=== PATIENT | female | born 1975 | race Caucasian/White ===

== ENCOUNTER 2021-08-21 16:16 | Emergency (ER) | payer MEDICARE, MEDICAID ==
[~2021-08-21] VITALS: Ht 162 cm; Wt 77.0 kg
[~2021-08-21 16:16] MED LIST: B COMPLEX PO; CALC-250 PO; CETI10TA17 PO; CHOL200018 PO; CITA20TA4 PO; CYCL10TA9 PO; DCS100C PO; DIATOMACEOUS EARTH PO; DIPH25TA82 PO; FLU; FLUR100T2 PO; LORA0.5T PO; MAGNESIUM OIL TOP; METO25TA2 PO; OMEG1CAP51 PO; ONDA8TAB2 PO; OXYC1TAB87 PO; SENN1TAB76 PO; SMT80CT PO; TUMERIC 1000 MG PO; ZOLP10TA5 PO; [UNRECOGNIZED DRUG - OTHER]
--- OUTSIDE RECORDS SUMMARY | 2021-08-21 16:21 | XMS REPORT | Encounter Summary ---
Author Author [facility] Organization [facility] Address Unknown Phone Unavailable Care Team Providers Care Account Executive Key Accounts Name Role Phone Jessica Nolasco DO Unavailable Jacki Oleary MD PCP Reason for Visit * Reason Comments Medication Refill Encounter Details Care Team Description [place] [address] [facility] [address] [place] [address] 08/17/2021 Refill Neurology: [facility] [place] [address] Social History Date Tobacco Use Types Packs/Day Years Used Never Smoker Smokeless Tobacco: Never Used Comments Alcohol Use Standard Drinks/Week No 0 (1 standard drink = 0.6 o z pure alcohol) Sex Assigned at Date Recorded Female 03/06/2020 11:51 AM CDT Date Recorded COVID-19 Exposure Response 07/31/2021 4:12 PM WARP TYING MACHINE TENDER In the last month, have you been in contact with No / Unsure someone who was confirmed or suspected to have Coronavirus / COVID-19? documented as of this encounter Functional Status Date of Assessment Functional Status Response 06/02/2018 Does the patient have a hearing impairment: No 06/02/2018 Does the patient have a visual impairment: Yes 06/02/2018 Does the patient have impaired ambulation: Yes 06/10/2017 Does the patient have an activity of daily living No (ADL) impairment: 06/10/2017 Does the patient have an instrumental activity of No daily living (IADL) impairment: Date of Assessment Cognitive Status Response 06/02/2018 Does the patient have a cognitive impairment: No documented as of this encounter Ordered Prescriptions Start Date End Date Prescription Sig Dispensed Refills 08/17/2021 rizatriptan (MAXALT) 10 TAKE 1 TABLET 9 tablet 2 mg tablet BY MOUTH ONCE DAILY NEEDED . MAY REPEAT IN 2 HOURS NEEDED. documented in this encounter Plan of Treatment Not on filedocumented as of this encounter Visit Diagnoses Not on filedocumented in this encounter Discontinued Medications Start Date End Date Medication Sig Discontinue Reason 06/06/2021 08/17/2021 rizatriptan (MAXALT) 10 TAKE 1 mg tablet TABLET BY MOUTH ONCE DAILY NEEDED . MAY REPEAT IN 2 HOURS NEEDED. documented as of this encounter Additional Health Concerns Noted Time Assessment 09/18/2020 10:49 AM WARP TYING MACHINE TENDER PHQ-9 Depression Total Score: 16 07/31/2021 4:30 PM WARP TYING MACHINE TENDER A fall risk assessment has been complet ed for the patient 07/21/2019 2:49 PM WARP TYING MACHINE TENDER A Body Mass Index follow-up plan has be en documented for the patient 07/31/2021 4:29 PM WARP TYING MACHINE TENDER PHQ-2 Depression Total Score: 0 documented as of this encounter Care Teams Start Date End Date Account Executive Key Accounts Relationship Specialty 03/06/20 Jacki Oleary MD PCP - General Family [address] [place] [id number] 03/06/20 Jessica Nolasco DO Obstetrics [address] [place] [address] documented as of this encounter
--- OUTSIDE RECORDS SUMMARY | 2021-08-21 16:21 | XMS REPORT | Encounter Summary ---
Author Author [facility] Organization [facility] Address Unknown Phone Unavailable Care Team Providers Care Reaming Machine Operator Name Role Phone Jessica Nolasco DO Unavailable Jacki Oleary MD PCP Reason for Referral * Pain Authorization (Routine) - New Request Diagnoses / Procedures Referred By Contact Referred To Conta [facility] Specialty Diagnoses Chronic migraine w/o aura w/o status migrainosus, not intractable Procedures CHEMOD[place]ERVATION [place] [address] [facility] [place] [address] [place] [address] Referral ID Status Reason Start Date Expiration Visits Vi sits Date Requested Authorized [id number] New Request 07/31/2021 07/31/2022 1 1 N HOOKER Reason for Visit * Reason Comments Procedure BTX; * Pain Authorization (Routine) - Authorized Diagnoses / Procedures Referred By Contact Referred To Conta ct Specialty Diagnoses Chronic migraine Procedures CHEMODENERVATION MUSCLE MIGRAINE [place] BOTULINUM [place] [address] [facility] [address] [place] [address] [place] [address] [facility] [address] [place] [address] Neurology Referral ID Status Reason Start Date Expiration Visits Vi sits Date Requested Authorized [id number] Authorized 03/21/2021 03/21/2022 1 1 Encounter Details Care Team Description [place] [address] [facility] [address] [place] [address] Chronic migraine w/o aura w/o status glendy rainosus, not intractable 07/31/2021 Procedure visit Neurology: [facility] [place], [address] [place] [address] Social History Date Tobacco Use Types Packs/Day Years Used Never Smoker Smokeless Tobacco: Never Used Comments Alcohol Use Standard Drinks/Week No 0 (1 standard drink = 0.6 o z pure alcohol) Sex Assigned at Date Recorded Female 03/06/2020 11:51 AM CDT Date Recorded COVID-19 Exposure Response 07/31/2021 4:12 PM CHAIN HOOKER In the last month, have you been in contact with No / Unsure someone who was confirmed or suspected to have Coronavirus / COVID-19? documented as of this encounter Last Filed Vital Signs Reading Time Taken Comments Vital Sign 116/74 07/31/2021 4:30 PM CHAIN HOOKER Blood Pressure 84 07/31/2021 4:30 PM CHAIN HOOKER Pulse - - Temperature - - Respiratory Rate 100% 07/31/2021 4:30 PM CHAIN HOOKER Oxygen Saturation - - Inhaled Oxygen Concentration 80.4 kg (177 lb 3.2 oz) 07/31/2021 4:30 PM CHAIN HOOKER Weight 163.8 cm (5' 4.49") 07/31/2021 4:30 PM CHAIN HOOKER Height 29.96 07/31/2021 4:30 PM CHAIN HOOKER Body Mass Index documented in this encounter Functional Status Date of Assessment [...] impairment: No documented as of this encounter Procedure Notes * Yeni Prince MD - 07/31/2021 4:45 PM CHAIN HOOKER Associated Order(s): CHEMODENERVATION MUSCLE MIGRAINE Procedure(s): [place] CHEMODERVATE FACIAL/TRIGEM/CERV MUSC MIGRAINE Pre-Procedure Diagnose(s): Chronic migraine Post-Procedure Diagnose(s): Chronic migraine w/o aura w/o status migrainosus, no t intractable Subjective: Jenny Rodríguez 46 y.o. female is here today for botox for c hronic migraines. Duration of migraines >20 years. The symptoms occur for greater than 4 hours 30 days per month with migraines at least 15 days per month. Currently: every day migraine in May, 3x per week -- this month a bit lotus r, but still more than her normal in the past. Any chance you are or trying to become ? no Vitals: 07/31/21 1630 BP: 116/74 BP Source: Arm, Left Upper Patient Position: Sitting Pulse: 84 SpO2: 100% Weight: 80.4 kg (177 lb 3.2 oz) Height: 163.8 cm (64.49") PainSc: Six Botox Injection Procedure Previous Injection Date:03/21/2021 Informed consent given verbally to the patient today to include, but not limited to: Most common side effects: neck pain, headache, eyelid ptosis, migraine, muscular weakness, musculoskeletal stiffness, bronchitis, injection-site pain, musculosk eletal pain, myalgia, facial paresis, hypertension, and muscle spasms; infection at injections sites, bruising, bleeding Most serious side effects/risks: anaphylaxis, dysphagia, pneumonia, arrhythmia, myocardial infarction, and in some cases, spontaneous Confirmed: patient, procedure, side, site, safety procedures followed. Performed by: Yeni Prince MD. Preparation: no contraindications noted to Botox, possible medications prior to procedure Emla cream 2.5%/2.5% - 2g topically prior to procedure, Tylenol, Prepa ration of site with alcohol Procedure performed: Indication: Chronic Migraine Headaches Medication: Onabotulinum toxin A 2.5 ml/100 units (Botulinum Toxin 5 units per 0.1mL, 200 units prepared) Location: PREEMPT protocol (Loni العلي, and coauthors. Cephalalgia, 2010;30:793) Muscles/Sites Injected C - Bilateral Frontalis - 20 units divided in 4 sites D - Bilateral Temporalis - 40 units divided in 8 sites E - Bilateral Occipitalis - 30 units divided in 6 sites F - Bilateral Cervical Paraspinals - 20 units divided in 4 sites G - Bilateral Trapezius - 40 units divided in 6 sites Follow the pain - orbic oculi 10 units divided in 4 sites Total Dose - 160 Units divided in 32 sites Lot/Expiration: [id number], 10/2023 - both vials Procedure tolerated: well. Complications: none. Diagnosis Chronic Migraine Headaches Course: Progressing as expected. Counseled: Patient/Family, Regarding diagnosis, Regarding treatment, Regarding medications. If any serious side effects occur, the patient has been instructed to go to the nearest emergency room and call our office. Follow up: as scheduled - call with any concerns N HOOKER documented in this encounter Miscellaneous Notes * Patient Instructions - Yeni Prince MD - 07/31/2021 4:45 PM CHAIN HOOKER 1) Do not massage or apply pressure on the treated area for 4hrs after treatment since Botox may migrate to areas of undesirable effectiveness. 2) Do not lie down for 4 hours after treatment. This is to avoid the risk of pre ssure on the treated areas. 3) Avoid rigorous exercise/activities, extensive heat (eg. sauna, hot tub, tanni ng) and sun exposure, and alcoholic beverages for the first 24 hours after treat ment. This may cause temporary redness, swelling, and/or itching at the injectio n sites. Feel free to shower and go about most other daily activities. 4) You may experience a mild headache after Botox. Should this occur, we recomme nd you avoid aspirin or aspirin containing products. You may opt instead to use acetaminophen, and/or cool compresses. Cold compresses may be used 10 minutes on 10 minutes off to reduce swelling 2-3 times per day during the first 1-2 days if needed. 5) Note that any bumps or lemon will go away in a few hours. If you do develop a bruise it will resolve like any other bruises you may have had in about a week. There is occasionally some mild pain, swelling, itching, or redness at the site of injection similar to most other injections. Redness may last for 1-2 days, r mica longer. You may apply cool compresses or take acetaminophen to reduce swel ling or discomfort. It is patient's responsibility to notify the clinic of any insurance changes at least 2 weeks prior to any Botox injection appointment to allow for prior author ization update. Botox Savings Program: [employer] will reimburse patients up to $1000 per treatme nt [email or web address] or Option 4 to register and submit cl aims. You will need your EOB with patient responsibility listed. If your EOB does not include CPT and J-code you will want to write those on the EOB to prevent delayed processing: CPT code: 55052 J-code: [id number] 6) Do not massage or apply pressure on the treated area for 4hrs after treatment since Botox may migrate to areas of undesirable effectiveness. 7) Do not lie down for 4 hours after treatment. This is to avoid the risk of pre ssure on the treated areas. 8) Avoid rigorous exercise/activities, extensive heat (eg. sauna, hot tub, tanni ng) and sun exposure, and alcoholic beverages for the first 24 hours after treat ment. This may cause temporary redness, swelling, and/or itching at the injectio n sites. Feel free to shower and go about most other daily activities. 9) You may experience a mild headache after Botox. Should this occur, we recomme nd you avoid aspirin or aspirin containing products. You may opt instead to use acetaminophen, and/or cool compresses. Cold compresses may be used 10 minutes on 10 minutes off to reduce swelling 2-3 times per day during the first 1-2 days if needed. 10) Note that any bumps or lemon will go away in a few hours. If you do develop a bruise it will resolve like any other bruises you may have had in about a week . There is occasionally some mild pain, swelling, itching, or redness at the sit e of injection similar to most other injections. Redness may last for 1-2 days, rarely longer. You may apply cool compresses or take acetaminophen to reduce swe lling or discomfort. It is patient's responsibility to notify the clinic of any insurance changes at least 2 weeks prior to any Botox injection appointment to allow for prior author ization update. Botox Savings Program: [employer] will reimburse patients up to $1000 per treatme nt [email or web address] or Option 4 to register and submit cl aims. You will need your EOB with patient responsibility listed. If your EOB does not include CPT and J-code you will want to write those on the EOB to prevent delayed processing: CPT code: 32037 J-code: [id number] N HOOKER documented in this encounter Plan of Treatment Order Schedule Name Type Priority Associated Diag noses Ordered: 07/31/2021 CHEMODENERVATION MUSCLE Procedures Routine Chroni c migraine w/o aura MIGRAINE w/o status migrainosus, not intractable documented as of this encounter Procedures Comments Procedure Name Priority Date/Time Associated Diag nosis [place] CHEMODERVATE Routine 07/31/2021 Chronic migrai ne FACIAL/TRIGEM/CERV MUSC 4:45 PM CHAIN HOOKER MIGRAINE documented in this encounter Visit Diagnoses Diagnosis Chronic migraine w/o aura w/o status mi grainosus, not intractable Chronic migraine without aura, without mention of intractable migraine without mention of status migrainosus * Addendum Note - Kristin Andres LPN - 07/31/2021 4:45 PM CHAIN HOOKER Addended by: KRISTIN ANDRES on: 07/31/2021 05:10 PM Modules accepted: Orders N HOOKER documented in this encounter Administered Medications Action Date Dose Rate Site Medication Order MAR Action 07/31/2021 4:55 PM CHAIN HOOKER 160 Units ONAbotulinum toxin A (BOTOX) injection Given 160 Units 160 Units, SEE ADMIN INSTRUCTIONS, ONCE , 1 dose, On Fri07/31/21 at 1745 documented in this encounter Orders First Ordered Date Medications Ordered That Might Not Have Count Last Ordered Date Been Administered ONAbotulinum toxin A (BOTOX) injection 1 07/31/2021 160 Units documented in this encounter Additional Health Concerns Noted Time Assessment 09/18/2020 10:49 AM CHAIN HOOKER PHQ-9 Depression Total Score: 16 07/31/2021 4:30 PM CHAIN HOOKER A fall risk assessment has been complet ed for the patient 07/21/2019 2:49 PM CHAIN HOOKER A Body Mass Index follow-up plan has be en documented for the patient 07/31/2021 4:29 PM CHAIN HOOKER PHQ-2 Depression Total Score: 0 documented as of this encounter Care Teams Start Date End Date Reaming Machine Operator Relationship Specialty 03/06/20 Jacki Oleary MD PCP - [address] [address] 03/06/20 Jessica Nolasco DO Obstetrics 1 [place] [address] documented as of this encounter
--- OUTSIDE RECORDS SUMMARY | 2021-08-21 16:21 | XMS REPORT | Clinical Summary ---
Author Author [facility] Organization [facility] Address Unknown Phone Unavailable Care Team Providers Care Crew Mess Attendant Name Role Phone Jessica Nolasco DO Unavailable Jacki Oleary MD PCP Source Comments Some departments are not documenting in the electronic medical record. If you d o not see the information that you expected, contact Release of Information in [facility] [employer] department at [phone] for further assistan ce in locating additional records.[facility] Allergies No known active allergies Medications End Date Status Medication Sig Dispensed Refills Start Date Active albuterol (VENTOLIN HFA, Inhale 2 0 PROAIR HFA) 90 Puffs by mcg/actuation inhaler mouth every 6 hours as needed. Active ondansetron (ZOFRAN) 8 mg Take 8 mg by 0 tablet mouth every 8 hours as needed. Active citalopram (CELEXA) 20 mg Take 20 mg by 0 tablet mouth daily. Active ALPRAZolam (XANAX) 0.5 mg Take 0.25 mg 0 tablet by mouth daily. Active diphenhydrAMINE Take 25 mg by 0 (BENADRYL) 25 mg capsule mouth every 6 hours as needed. Active cyclobenzaprine Take 10 mg by 0 (FLEXERIL) 10 mg tablet mouth three times daily as needed for Muscle Cramps. Active cetirizine (ZYRTEC) 10 mg Take 10 mg by 0 tablet mouth as Needed. Active fluticasone propionate Apply to 0 (FLONASE) 50 each nostril mcg/actuation nasal as directed spray, suspension daily. Shake bottle gently before using. Active fluticasone Inhale by 0 propion/salmeterol mouth into (ADVAIR DISKUS IN) the lungs twice daily. Active CHOLECALCIFEROL (VITAMIN Take by 0 D3) PO mouth daily. Active vitamins, B complex tab Take 1 tablet 0 by mouth daily. Active albuterol sulfate Ventolin HFA 0 (VENTOLIN HFA) 90 108 (90 Base) 8 mcg/actuation HFA aerosol MCG/ACT inhaler Active propranoloL (INDERAL) 10 Take 20 mg by 0 mg tablet mouth twice daily. Active soy isofla/blk cohosh/mag Take 1 tablet 0 bark (ESTROVEN PO) by mouth daily. Active ubrogepant (UBRELVY) 50 Take one 10 tablet 0 mg tabletIndications: tablet by 1 migraine mouth daily as needed. May repeat once after 2 hours based on response. Indications: a migraine headache Active rizatriptan (MAXALT) 10 TAKE 1 TABLET 9 tablet 2 mg tablet BY MOUTH ONCE 1 DAILY NEEDED . MAY REPEAT IN 2 HOURS NEEDED. 08/17/2021 Discontinued rizatriptan (MAXALT) 10 TAKE 1 TABLET 9 tablet 0 mg tablet BY MOUTH ONCE 1 DAILY NEEDED . MAY REPEAT IN 2 HOURS NEEDED. Status Hospital, Clinic, or Ordered Dose Route Frequency Start End Date Other Facility Date Administered Medication Ended ONAbotulinum toxin A 160 Units SEE ADMIN ONCE 07/31/20 (BOTOX) injection 160 21 1 Units Active Problems Problem Noted Date Myopia 07/24/2020 Last Assessment & Plan: Formatting of this note might be differ ent from the original. Current Rx with [facility] Intractable migraine with aura without status migrain osus 01/20/2019 Last Assessment & Plan: Formatting of this note might be differ ent from the original. The patient has complex headache syndro me with forms consistent with chronic migraine with cervicogenic and a muscular component. We briefly discussed management options including transcranial magnetic stimulation with "Cephaly" we also disc ussed Botox injections and she is keen on the later as her aunt has tried it with success But she is concerned on the effects on her fibromyalgia. We also dicussed techniques to improve strength including PT, exercise and yoga. I think some of her headache component is due to the neck pain and I advised her to follow up with her pain clinic for this. I will refer her to for assessm ent for Botox injections Spinal enthesopathy of oiybzvat-fqlnfeg-zpcty region 03/21/2018 Last Assessment & Plan: Formatting of this note might be differ ent from the original. Trigger points identified in both right and left occipital regions. Procedure note: 2 trigger points were identified in the right occipital region. Using a 3 ml syringe, a mixture of 40 mg of Depom edrol and 1 ml 1 % lidocaine was created. The area was prepped in steril e fashion and using a 27 gauge 1 1/4 inch needle, the trigger point was inje cted. 1 ml of the mixture was injected into each trigger point. The p atient experienced no relief, and in fact felt that she was worse. Thus even though she had a trigger point in the left occipital region, I did not in ject her left side. Chronic daily headache 03/05/2018 Last Assessment & Plan: Formatting of this note might be differ ent from the original. The patient has history of episodic glendy karmen with auras and facial pains that are recurrent \\ As of recent she is getting a new type of pressure likely cephalgia which is daily. This could be a referred pain from the neck and important consideration here would be venous occlusion or eleva baldemar ICP however clinically there are no signs of this. We disucssed options of trigger point i njection I suggested adding Conzyme Q 10 (100-20 0) mg daily We also discussed the option of botox i njection but the patient was not keen on this due to "weak immune system " for now. [facility] would be to do an LP I will also refer her to for t plate shear operator point injections. Pineal gland cyst 03/05/2018 Last Assessment & Plan: Formatting of this note might be differ ent from the original. I will repeat the MRI of the brain and if stable with no changes she can follow up with her next provider if any follow up is needed but usually this is not required in the cyst is sta ble. Neck pain 03/05/2018 Last Assessment & Plan: Formatting of this note might be differ ent from the original. There is evidence of muscle increased t one and trigger point tenderness. This added headaches could be a cervica lgia and I will go a head and arrange for a C-spine MRI without contr ast for assessment. 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 NURSE Chronic migraine with aura (Primary Dx); Positional headache 07/05/2021 Office Visit Neurology Telehealth Yeni Prince MD Headache 06/12/2021 Telephone Neurology Yeni Prince MD 06/06/2021 Refill Neurology from Last 3 Months Surgical History Surgery Date Site/Laterality Comments HX HYSTERECTOMY HX LEEP PROCEDURE 2009 Medical History Medical History Date Comments Asthma Psoriasis Arthritis Menopause Piriformis syndrome Achilles bursitis or tendinitis Bronchitis, acute Sinusitis, acute Anxiety disorder Cancer (HCC) 2009 citu of uterine cer vix Cervical high risk HPV (human papillomavirus) test positive Depression sees psychiatrist and psych ologist Dysmenorrhea Endometriosis of uterus 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 Irritable bowel disease 2003 Insomnia 2007 (ginger dempsey b ellsomra, melatonin) Migraine chronic headaches, LP OP 29 , no papilledema, normal formal venogram Panic disorder PTSD (post-traumatic stress disorder) 2007 H/O tinea kalina Mild dysplasia of cervix Fibromyalgia Family History Medical History Relation Name Comments Heart Attack Father Stroke Father Macular Degen Maternal Grandmother Thyroid Disease Mother Relation Name Status Comments Father Alive Maternal Grandmother Mother Alive Sister Alive Fatal Scleroderma Social History Date Tobacco Use Types Packs/Day Years Used Never Smoker Smokeless Tobacco: Never Used Tobacco Cessation: Counseling Given: No Comments Alcohol Use Standard Drinks/Week No 0 (1 standard drink = 0.6 o z pure alcohol) Sex Assigned at Date Recorded Female 03/06/2020 11:51 AM CDT Date Recorded COVID-19 Exposure Response 07/31/2021 4:12 PM TEAM FACILITATOR In the last month, have you been in contact with No / Unsure someone who was confirmed or suspected to have Coronavirus / COVID-19? Last Filed Vital Signs Reading Time Taken Comments Vital Sign 116/74 07/31/2021 4:30 PM TEAM FACILITATOR Blood Pressure 84 07/31/2021 4:30 PM TEAM FACILITATOR Pulse 36.7 C (98.1 F) 03/21/2021 2:27 PM CDT Temperature 14 01/20/2019 2:51 PM CDT Respiratory Rate 100% 07/31/2021 4:30 PM TEAM FACILITATOR Oxygen Saturation - - Inhaled Oxygen Concentration 80.4 kg (177 lb 3.2 oz) 07/31/2021 4:30 PM TEAM FACILITATOR Weight 163.8 cm (5' 4.49") 07/31/2021 4:30 PM TEAM FACILITATOR Height 29.96 07/31/2021 4:30 PM TEAM FACILITATOR Body Mass Index Plan of Treatment Health Maintenance Due Date Last Done Comments MEDICARE ANNUAL WELLNESS 1973 VISIT HIV SCREENING 1988 DTAP/TDAP VACCINES (1 - 1991 Tdap) HEPATITIS C SCREENING 1991 PHYSICAL (COMPREHENSIVE) 1991 EXAM CERVICAL CANCER SCREENING 1994 BREAST CANCER SCREENING 2013 INFLUENZA VACCINE 04/08/2021 Procedures Comments Procedure Name Priority Date/Time Associated Diag nosis NH CHEMODERVATE Routine 07/31/2021 Chronic migrai ne FACIAL/TRIGEM/CERV MUSC 4:45 PM TEAM FACILITATOR MIGRAINE from Last 3 Months Results * NH CHEMODERVATE FACIAL/TRIGEM/CERV MUSC MIGRAINE (07/31/2021 4:45 PM TEAM FACILITATOR) Narrative IN CLINIC - 07/31/2021 4:45 PM TEAM FACILITATOR Yeni Prince MD 07/31/2021 4:56 PM Subjective: Jenny Rodríguez 46 y.o. female is here today for botox for chronic migraines. Duration of migraines >20 years. The symptoms occur for greater than 4 hours 30 days per month with migraines at least 15 days per month. Currently: every day migraine in May, Jun 3x per week -- this month a bit better, but still more than her normal in [...] muscular weakness, musculoskeletal stiffness, bronchitis, injection-site pain, musculoskeletal pain, myalgia, facial paresis, hypertension, and muscle spasms; infection at injections sites, bruising, bleeding Most serious side effects/risks: anaphylaxis, dysphagia, pneumonia, arrhythmia, myocardial infarction, and in some cases, spontaneous Confirmed: patient, procedure, side, site, safety procedures followed. Performed by: Yeni Prince MD. Preparation: no contraindications noted to Botox, possible medications prior to procedure Emla cream 2.5%/2.5% - 2g topically prior to procedure, Tylenol, Preparation of site with alcohol Procedure performed: Indication: [...] 160 Units divided in 32 sites Lot/Expiration: [id number], 10/2023 - both vials Procedure tolerated: well. Complications: none. Diagnosis Chronic Migraine Headaches Course: Progressing as expected. Counseled: Patient/Family, Regarding diagnosis, Regarding treatment, Regarding medications. If any serious side effects occur, the patient has been instructed to go to the nearest emergency room and call our office. Follow up: as scheduled - call with any concerns Performing Organization Address City/State/ZIP Code P [place] Number IN CLINIC from Last 3 Months Insurance Type Payer Benefit Subscriber ID Effective Phone Address Plan / Dates Group Medicare MEDICARE MEDICARE [id number] 2013-P [phone] [address] [place] [address] Medicaid [facility] MEDICAID [facility] [id number] 2013-P [address] [place] [address] Advance Directives Patient It Communications Specialist Explanation Type Date Recorded Advance Directive/DPOA Date Inactivated Comments Code Status Date Activated 05/19/2020 6:12 PM Full Code 05/19/2020 1:54 PM Provider has discussed Code Status Yes w/Patient or Family? Care Teams Start Date End Date Crew Mess Attendant Relationship Specialty 03/06/20 Jacki Oleary MD PCP - General Family [facility] [place] [address] [place] [address] 03/06/20 Jessica Nolasco DO Obstetrics [address] [place] [address]
--- OUTSIDE RECORDS SUMMARY | 2021-08-21 16:21 | XMS REPORT | Encounter Summary ---
Author Author [facility] Organization [facility] Address Unknown Phone Unavailable Care Team Providers Care Projection Camera Operator Name Role Phone Jessica Nolasco DO Unavailable Jacki Oleary MD PCP Reason for Referral * Consult, Test & Treat (Routine) - Authorized Diagnoses / Procedures Referred By Contact Referred To Conta ct Specialty Diagnoses Chronic migraine with aura Positional headache Duyen Vaughan APRN-DIRECTOR COMMUNITY ORGANIZATION [address] [place] [address] Krishnan LinetteDO [address] [facility] [address] [place] [address] Referral ID Status Reason Start Date Expiration Visits Vi sits Date Requested Authorized [id number] Authorized Specialty Services 07/05/2021 07/05/2022 1 1 Required Answer Question Positional headaches Referral Comments possible CSF leak. Dr. Prince has completed CSF work up with varying opening pressures on lumbar punctures. Patient is reporting positional RADFORD and has tried and failed numerous medications. Reason for Visit * Reason Comments Migraine position RADFORD. 11 migraines p er month Encounter Details Care Team Description Date Type Department Duyen Vaughan APRN-NP [address] [place] [address] Chronic migraine with aura (Primary Dx); Positional headache 07/05/2021 Office Visit Neurology: [facility], [address] [address] [facility] [place] [address] Social History Date Tobacco Use Types Packs/Day Years Used Never Smoker Smokeless Tobacco: Never Used Comments Alcohol Use Standard Drinks/Week No 0 (1 standard drink = 0.6 o z pure alcohol) Sex Assigned at Date Recorded Female 03/06/2020 11:51 AM CDT documented as of this encounter Functional Status [...] Date End Date Prescription Sig Dispensed Refills 07/05/2021 ubrogepant (UBRELVY) 50 Take one 10 tablet 0 mg tabletIndications: tablet by migraine mouth daily as needed. May repeat once after 2 hours based on response. Indications: a migraine headache documented in this encounter Progress Notes * Duyen Vaughan, MELBA-DIRECTOR COMMUNITY ORGANIZATION - 07/05/2021 3:30 PM CDT Subjective: Obtained patient's verbal consent to treat them and their agreement to [facility] policy and NPP via this telehealth visit during the Coronavirus Public He alth Emergency Zoom Consent: Audio + Video utilized This visit was completed via Zoom due to the restrictions of the COVID-19 pandem ic. All issues documented were discussed and addressed but no physical exam was performed unless allowed by visual confirmation on Zoom. If it was felt that the patient should be evaluated in clinic then they were directed there. Patient ve rbally consented to visit and understands diagnostic limitations of not having a bility to complete full physical examination. Jenny Rodríguez is a 46 y.o. female who is a patient of Dr. Prince's who p resents to via Telehealth today for follow up on her chronic intractable migrain es. She has been getting Botox with Dr. Prince for the last 2 years. She reports h er last injection was in March. With resubmission of [place] Botox, Medicare initially declined and she had to reschedule her May Botox for 07/31. She had 27 mi graines in May since missing her Botox injection. On 06/12 she notified patricio mojica that her positional headaches have been worsening. She is still taking Pro panolol 40mg daily.She is no longer on the Zonisamide for 2-3 weeks due to brain fog and depression. She mentions with her last visit with Dr. Prince they discuss ed possible referral to Dr. Krishnan or repeating a lumbar puncture. At this time she declines to taking any new medications such as the Emgality. She would like to wait until after the Botox. Please see below for any updates or changes in h er migraine characteristics. In May she had 27 migraines per month. She notes increased stress with a neighbor below her apartment complex who is sm oking marijuana and burning scents that is worsening sinus headaches. In June she is reporting around 2-3 migraines per week (averaging 11 per month) that are lasting several hours at a time. She notes that she hasn't been keeping a strict diary as much this last month. She reports the Maxalt takes the edge off by r educing the severity, but the migraine still persists. She is still reporting pain and pressure while lying down flat. When she gets a migraine she ideally would like to lie down, but reports it makes her migraines worse. She is concerned and interested in exploring a second opinion to identify a cause. She has a history of fibromyalgia and chronic pain diagnosed over 10 years ago. 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 Onset: 20's - started with sinus headaches and migraines, worse over the last 10 years, then worsening again since February 2020. Location: holocephalic, but start with pressure behind the eyes, then heaviness, then one side or the other gets worse. She also has pain at the base of her sku ll down to her lower neck. This has been present since at least 2017. Pressure in the head/neck and then pressure builds in the head, worse with lying down or bending over- same Quality: pressure, heaviness, throbbing -same Severity: up to 06/17 --> 4-8-same Total headache days per month/duration: daily, greater than half are severe last ing more than 4 hours -->She feels like her brain fog has been worse on the medications, but she does feel that the migraines are likely better. Per prior notes: Likely 16 migraines per month that are more severe, lasting 1-12 hours now. 11 migraines per month lasting several hours at a time despite Rizatriptan Associated symptoms: nausea, vomiting --> takes zofran nearly daily by her report (given to her by PCP for years - notes she has had GI work up and has suffered from chronic daily nausea for many years), photophobia, phonophobia, non pulsatile ringing in ears/roaring sounds --> LP OP: 29 --> OP 5 (reported to be difficult study) Aura: zig zag lights, more in left eye; red/black/green -same Triggers: lack of sleep, weather changes, MSG, red wine, alcohol, possibly Glute n, stress Sleep/snoring: She had sleep study and was negative for SINAN. She has a long stephany ding history of insomnia. Abortive tx: Relpax 40mg - takes all 9 pills every month - insurance stopped covering this Rizatriptan 10mg prn (10/2020) Benadryl 25mg Zofran 8mg -16mg per day --> This has been long standing and her PCP is aware. Percocet/oxycodone prn - no longer taking this Toradol - once every 2 months PPx tried/length of trial: Tizanidine 4mg every 8 hours prn - alternates every few months with flexeril Flexeril 10mg TID Celexa 20mg daily Topamax - one year trial - cognitive effects Metoprolol Propranolol 20mg BID - dosing per psychiatry Amitriptyline Cymbalta Diamox 500mg daily - not tolerating well. - she ended up stopping this Botox every 12 weeks - feels this helps migrainous headaches and fibro pain in t he neck area. Occipital nerve blocks - no help Cervical ADRIEN - no help Trigger point injections - no help Zonegran 100mg daily - worsening mood Other: sound therapy No trials: gabapentin, lyrica, savella, CGRP injectables (She did not want to tr ial these. MRI cervical spine w/o 02/02/2021 @[facility]: 1. Multilevel degenerative foraminal owen nosis greatest of at least moderate degree on the left at C3-C4 and C4-C5. 2. Mild degenerative central spinal stenosis at C5-C6. LP 01/02/2021: opening pressure 5 Formal venogram 10/10/2020: Findings: Normal dural sinus pressures LP 05/19/2020 @[facility] with OP 29. She was started on low dose diamox, but she reporte d she could not tolerate the medication titration well. 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 MRI brain w/wo 08/05/2020 @[facility]: 1. 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 Otherwise unremar kable MRI of the head. MRV head w/ 08/05/2020 @[facility]: 1. No evidence of dural sinus thrombosis. 2. Unchang ed mild narrowing of the lateral right transverse sinus where there is an incide ntal arachnoid granulation MRV w/contrast 03/20/18 [facility]: 1. No evidence of venous sinus thrombosis. 2. Small r ight transverse sinus arachnoid granulation. MRI C spine w/o 03/20/18 [facility]: 1. Left-sided facet hypertrophy resulting in mild t o moderate left neural foraminal stenosis at C3-C4 and minimal left neural dacia inal stenosis at C4-C5.2. Posterior annular fissure and tiny central disc protru timbo at C5-C6 without associated stenosis. 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 Fibromyalgia H/O tinea kalina Insomnia 2007 (ambien, lunesta, bellsomra, melatonin) Irritable bowel disease 2004 Menopause Migraine chronic headaches, LP OP 29, no papilledema, normal formal venogram Mild dysplasia of cervix Panic disorder Piriformis syndrome Psoriasis PTSD (post-traumatic stress disorder) 2008 Sinusitis, acute Surgical History: Procedure Laterality Date HX LEEP PROCEDURE 2009 HX HYSTERECTOMY Social History Tobacco Use Smoking status: Never Smoker Smokeless tobacco: Never Used Vaping Use Vaping Use: Never used Substance Use Topics Alcohol use: No Drug use: No Family History Problem Relation Age of Onset Thyroid Disease Mother Stroke Father Heart Attack Father Macular Degen Maternal Grandmother No Known Allergies Review of Systems Constitutional: Positive for fatigue. Eyes: Positive for photophobia and visual disturbance. Gastrointestinal: Positive for nausea. Musculoskeletal: Positive for neck pain and neck stiffness. Neurological: Positive for headaches. Psychiatric/Behavioral: Positive for dysphoric mood and sleep disturbance. Objective: albuterol (VENTOLIN HFA, PROAIR HFA) 90 mcg/actuation inhaler Inhale 2 Puffs by mouth every 6 hours as needed. albuterol sulfate (VENTOLIN HFA) 90 mcg/actuation HFA aerosol inhaler Ventol in HFA 108 (90 Base) MCG/ACT ALPRAZolam (XANAX) 0.5 mg tablet Take 0.25 mg by mouth daily. cetirizine (ZYRTEC) 10 mg tablet Take 10 mg by mouth as Needed. CHOLECALCIFEROL (VITAMIN D3) PO Take by mouth daily. citalopram (CELEXA) 20 mg tablet Take 20 mg by mouth daily. cyclobenzaprine (FLEXERIL) 10 mg tablet Take 10 mg by mouth three times ayesha y as needed for Muscle Cramps. diphenhydrAMINE (BENADRYL) 25 mg capsule Take 25 mg by mouth every 6 hours a s needed. fluticasone propion/salmeterol (ADVAIR DISKUS IN) Inhale by mouth into the lungs twice daily. fluticasone propionate (FLONASE) 50 mcg/actuation nasal spray, suspension Ap ply to each nostril as directed daily. Shake bottle gently before using. ondansetron (ZOFRAN) 8 mg tablet Take 8 mg by mouth every 8 hours as needed. propranoloL (INDERAL) 10 mg tablet Take 20 mg by mouth twice daily. rizatriptan (MAXALT) 10 mg tablet TAKE 1 TABLET BY MOUTH ONCE DAILY NEEDE D . MAY REPEAT IN 2 HOURS NEEDED. soy isofla/blk cohosh/mag bark (ESTROVEN PO) Take 1 tablet by mouth daily. ubrogepant (UBRELVY) 50 mg tablet Take one tablet by mouth daily as needed. May repeat once after 2 hours based on response. Indications: a migraine headac he vitamins, B complex tab Take 1 tablet by mouth daily. There were no vitals filed for this visit. There is no height or weight on file to calculate BMI. General: alert, oriented x 3 Speech: normal, no dysarthria ASSESSMENT/PLAN: Jenny Elaine Rodríguez 46 y.o. female is here today for evaluation of chronic h eadaches worse now with lying down. Initial LP op 29, but repeat 5 (difficult ta p by patient report), with normal MRI brain, formal venogram, and ophthalmologic exams. Unclear etiology for continued significant pain with little response to multiple meds or med intolerance. 1. Chronic migraine with aura 2. Positional headache RECOMMENDATIONS: Continue botox every 12 weeks. Continue Propanolol 40mg for migraine prevention. Discussed due to having difficulty determining what is causing the significant p ressure sensation with varying LP opening pressures, a referral was sent to Dr. Krishnan in neurology at [facility] for a second opinion. Prescription for Ubrelvy sent to [facility] pharmacy for an alternative migraine a bortive. -- Trial of UBRELVY 50mg daily as needed for migraine. To be used no mo re than 8 days per month. -- Most common side effects include nausea and somnolence, so see how you feel after first dose prior to driving. -- Certain medications may interact with Ubrelvy, so please notify your physici ans you are on this medication at future visits or when adding new medications. For Acute Headache: -- For a more severe headache, take rizatriptan 10mg OR Ubrelvy 50mg + naproxen 440mg + magnesium 500-600mg +/- benadryl 25mg (depending on if you are at work/n eeding to drive) -- Please refrain from taking any combination of "as needed" medications more th an 8-10 times per month, as this can lead to medication overuse/rebound headache s. FOLLOWUP PLAN Return in about 6 months (around 01/03/2022) for Telehealth, In-Person. Total Time Today was 30 minutes in the following activities: Preparing to see th e patient, Performing a medically appropriate examination and/or evaluation, Cou nseling and educating the patient/family/caregiver, Ordering medications, tests, or procedures and Documenting clinical information in the electronic or other [facility] record Physical Exam documented in this encounter Miscellaneous Notes * Patient Instructions - Duyen Vaughan APRN-NP - 07/05/2021 3:30 PM CDT --If you become or are planning to become , please call your doctor if taking headache prevention or acute headache medications. -- Please be aware of the slight risk of serotonin syndrome with combining anti depressant medications with triptan medications. If you develop any confusion/ir ritation/agitation, tremors, muscle rigidity, muscle jerking, fevers, please sto p the medications and go to ER for evaluation. Medications OTC that you may try for prevention: Magnesium oxide 400-500mg daily (may cause diarrhea) Riboflavin 200-400mg daily Co-Q10 100mg three times daily If you choose to add these, I suggest adding one supplement every 2-4 weeks to g robin time to assess for any adverse effects of each. General Headache Education: -- Relaxation: Find something that you enjoy to engage in at least 15 minutes pe r day: stretching/breathing, mindfulness/meditation, yoga, pilates, pietro chi, etc . [facility] in [facility] does have some free classes to join for "training" on chato techniques. There are also apps for your phone, and even youtube videos that may help with this. -- Sleep hygiene: Please attempt same bedtime and wake time each day. Also try t o obtain 8 hours of sleep each night. Monitor for any symptoms of restless legs or vivid dreaming. -- Fluid intake: It is important to take in at least 40 oz. of fluid per day. -- Diet/Exercise: It is important to moderate dietary intake of sugars/carbohydr ates, caffeine, red wine, cheese, chocolate, processed foods, as these *may* be triggers. Exercising regularly is also recommended. A healthy/normal BMI is rec ommended. You may try the headache diary and trigger sheet to see if you are abl e to identify any triggers. --Many headache prevention medications can worsen depression initially and even cause suicidal ideas. If you feel like you could harm yourself or others, please go to a local ED or call 911. -- Realistic expectations of Chronic headaches: We hope for eventual 50% reduct ion in headaches frequency and/or intensity. Need to try drug for at least 90 da ys at therapeutic dose, unless significant side effects/adverse effects. Often i t will take combination of multiple medications and/or procedures to provide ty e relief. -- Please note that most headache medications that are prescribed for both preve ntion and treatment are actually "off label" for this indication. There are smal l reviews of the medications that have gained their [place] [employer] y recommendation for use. As with any medication, these can cause side effects. Please be aware of the most common side effects and call the office with any con cerns. -- Please keep a headache diary so that we can track the # of days per month and the intensity on a 10 point scale. This will be helpful when adding/changing me dications. -- Due to episodic or chronic pain/chronic migraines, Cognitive Behavioral Thera py, Biofeedback, and general counseling are often also helpful. [facility] is a great local resource, as well as seeing a psychologist/pain psychologist mark pillai is recommended. -- Some of the medications that you may be prescribed may cause sedation, fatigu e and/or dizziness/lightheadedness. Please avoid driving, operating heavy dennis emiliano, and/or making important decisions while initially starting these medication s. Also be aware that when combining several potentially sedating medications, s edating effect may become significantly more pronounced. Do not combine medicati ons with alcohol. RECOMMENDATIONS: Continue botox every 12 weeks. Continue Propanolol 40mg for migraine prevention. Discussed due to having difficulty determining what is causing the significant p ressure sensation with varying LP opening pressures, a referral was sent to Dr. Krishnan in neurology at [facility] for a second opinion. Prescription for Ubrelvy sent to [facility] pharmacy for an alternative migraine a bortive. -- Trial of UBRELVY 50mg daily as needed for migraine. To be used no mo re than 8 days per month. -- Most common side effects include nausea and somnolence, so see how you feel after first dose prior to driving. -- Certain medications may interact with Ubrelvy, so please notify your physici ans you are on this medication at future visits or when adding new medications. For Acute Headache: -- For a more severe headache, take rizatriptan 10mg OR Ubrelvy 50mg + naproxen 440mg + magnesium 500-600mg +/- benadryl 25mg (depending on if you are at work/n eeding to drive) -- Please refrain from taking any combination of "as needed" medications more th an 8-10 times per month, as this can lead to medication overuse/rebound headache s. documented in this encounter Plan of Treatment Order Schedule Name Type Priority Associated Diag noses Ordered: 07/05/2021 AMB REFERRAL TO NEUROLOGY Outpatient Routine Banquet Chef myles migraine with Referral aura Positional headache documented as of this encounter Visit Diagnoses Diagnosis Chronic migraine with aura - Primary Positional headache Headache documented in this encounter Discontinued Medications Start Date End Date Medication Sig Discontinue Reason 04/13/2021 07/05/2021 zonisamide (ZONEGRAN) 50 Take two Side effects mg capsule capsules by mouth at bedtime daily. documented as of this encounter Additional Health Concerns Noted Time Assessment 09/18/2020 10:49 AM SCALE INSTALLER PHQ-9 Depression Total Score: 16 03/21/2021 2:26 PM CDT A fall risk assessment has been complet ed for the patient 07/21/2019 2:49 PM SCALE INSTALLER A Body Mass Index follow-up plan has be en documented for the patient 03/21/2021 2:25 PM CDT PHQ-2 Depression Total Score: 1 documented as of this encounter Care Teams Start Date End Date Projection Camera Operator Relationship Specialty 03/06/20 Jacki Oleary MD PCP - [address] [address] 03/06/20 Jessica Nolasco DO Obstetrics [address] [place] [address] documented as of this encounter
--- OUTSIDE RECORDS SUMMARY | 2021-08-21 16:21 | XMS REPORT | Encounter Summary ---
Author Author [facility] Organization [facility] Address Unknown Phone Unavailable Care Team Providers Care Contact Printer Dry Film Name Role Phone NolascoJessica jennings DO Unavailable Jacki Oleary MD PCP Encounter Details Care Team Description Date Type Department 07/31/2021 Travel Social History Date Tobacco Use Types Packs/Day Years Used Never Smoker Smokeless Tobacco: Never Used Comments Alcohol Use Standard Drinks/Week No 0 (1 standard drink = 0.6 o z pure alcohol) Sex Assigned at Date Recorded Female 03/06/2020 11:51 AM CDT Date Recorded COVID-19 Exposure Response 07/31/2021 4:12 PM INSPECTOR OF WEIGHTS AND MEASURES In the last month, have you been [...] impairment: No documented as of this encounter Plan of Treatment Not on filedocumented as of this encounter Visit Diagnoses Not on filedocumented in this encounter Additional Health Concerns Noted Time Assessment 09/18/2020 10:49 AM INSPECTOR OF WEIGHTS AND MEASURES PHQ-9 Depression Total Score: 16 07/31/2021 4:30 PM INSPECTOR OF WEIGHTS AND MEASURES A fall risk assessment has been complet ed for the patient 07/21/2019 2:49 PM INSPECTOR OF WEIGHTS AND MEASURES A Body Mass Index follow-up plan has be en documented for the patient 07/31/2021 4:29 PM INSPECTOR OF WEIGHTS AND MEASURES PHQ-2 Depression Total Score: 0 documented as of this encounter Care Teams Start Date End Date Contact Printer Dry Film Relationship Specialty 03/06/20 Jacki Oleary MD PCP - [address] [address] 03/06/20 Jessica Nolasco DO Obstetrics [address] [place] [address] documented as of this encounter
--- NOTE | 2021-08-21 16:33 | ED Head Injury ---
General Chief Complaint: Head/Cervical Problems Stated Complaint: HIT HEAD,NAUSEA,DIZZY History of Present Illness Date Seen by Provider: Aug 21, 2021 Time Seen by Provider: 16:33 Initial Comments 46-year-old female presents because she would like a "migraine cocktail" patient however reports that she did hit her head yesterday feels little bit nauseous and dizzy. That she got hit by a proximate 15 pound printer/shelf yesterday in her head. That she has felt a little dizzy since then. Patient however reports that she has a history of "migraines" and had a migraine with an aura last night. Patient initially presented to her primary care provider but did not stay to be evaluated because she wanted to come to the ER to get a migraine cocktail. Patient reports she has a history of migraines and that as she feels today seems more consistent with a migraine. She does report a little bit of nausea but no vomiting. Allergies and Home Medications Allergies Coded Allergies: No Known Drug Allergies (Unverified , 04/15/13) Patient Home Medication List Home Medication List Reviewed: Yes Calcium Carbonate/Vitamin D3 (Vitamin D3 5,000 Unit Tablet) 1 Each Tablet, 5,000 UNIT PO DAILY, (Reported) Entered as Reported by: RAHUL SCHROEDER on 04/15/13 1259 Cetirizine Hcl (Cetirizine Hcl) 10 Mg Tablet, 10 MG PO DAILY, (Reported) Entered as Reported by: RAHUL SCHROEDER on 04/15/13 1237 Citalopram Hydrobromide (Citalopram Hbr) 20 Mg Tablet, 20 MG PO DAILY, (Reported) Entered as Reported by: RAHUL SCHROEDER on 04/15/13 1230 Diphenhydramine Hcl (Diphenhydramine 25 Mg) 25 Mg Tablet, 25 MG PO Q4H PRN, (Reported) Entered as Reported by: RAHUL SCHROEDER on 04/15/13 1237 Docusate Sodium (Colace Capsule) 100 Mg Cap, 100 MG PO BID Prescribed by: TOMASA HUNTER on 04/21/13 1218 Flurbiprofen (Flurbiprofen) 100 Mg Tablet, 100 MG PO BID, (Reported) Entered as Reported by: RAHUL SCHROEDER on 04/15/13 1230 Lorazepam (Ativan) 0.5 Mg Tablet, 0.5 MG PO Q4H PRN, (Reported) Entered as Reported by: RAHUL SCHROEDER on 04/15/13 123 Metoprolol Tartrate (Metoprolol Tartrate 25 Mg) 25 Mg Tablet, 25 MG PO BID, (Reported) Entered as Reported by: RAHUL SCHROEDER on 04/15/13 123 [place]-3 Fatty Acids/Fish Oil (Fish Oil 1,000 Mg Softgel) 1 Each Capsule, 1,000 MG PO DAILY, (Reported) Entered as Reported by: RAHUL SCHROEDER on 04/15/13 123 Ondansetron Hcl (Ondansetron Hcl) 8 Mg Tablet, 8 MG PO Q8H PRN, (Reported) Entered as Reported by: RAHUL SCHROEDER on 04/15/13 123 Oxycodone Hcl/Acetaminophen (Endocet) 1 Tab Tablet, 2 TAB PO Q6H PRN Prescribed by: TOMASA HUNTER on 04/21/13 1218 Senna (Senokot S) 1 Ea Tablet, 1 EA PO DAILY Prescribed by: TOMASA HUNTER on 04/21/13 1218 Simethicone (Mylicon Chews) 80 Mg Chew, 80 MG PO Q2HR PRN Prescribed by: TOMASA HUNTER on 04/21/13 121 Zolpidem Tartrate (Zolpidem Tartrate) 10 Mg Tablet, 10 MG PO HS, (Reported) Entered as Reported by: RAHUL SCHROEDER on 04/15/13 1230 [B Complex Liquid] , PO DAILY, (Reported) Entered as Reported by: RAHUL SCHROEDER on 04/15/13 1237 [Diatomaceous Earth] , 1 TSP PO DAILY, (Reported) Entered as Reported by: RAHUL SCHROEDER on 04/15/13 123 [Magnesium Oil] , 1-3 SPRAYS TOP DAILY, (Reported) Entered as Reported by: RAHUL SCHROEDER on 04/15/13 123 [Sambucol Cold & Flu] , UD, (Reported) Entered as Reported by: RAHUL SCHROEDER on 04/15/13 123 [Tumeric 1000MG] , 1 TAB PO DAILY PRN, (Reported) Entered as Reported by: RAHUL SCHROEDER on 04/15/13 123 Review of Systems Review of Systems Constitutional: No chills; dizziness; No fever Eyes: No Symptoms Reported Respiratory: No cough, No short of breath Cardiovascular: No chest pain, No palpitations Gastrointestinal: No abdominal pain, No constipation, No diarrhea; nausea; No vomiting Genitourinary: no symptoms reported Musculoskeletal: no symptoms reported Skin: no symptoms reported Psychiatric/Neurological: See HPI, Headache Past Ozajwiy-Ukpbbo-Prldgl Hx Seasonal Allergies Seasonal Allergies: No Past Medical History Asthma Reproductive Disorders: Yes (chronic pelvic pain) Gastroesophageal Reflux, Irritable Bowel Fibromyalgia Loss of Vision: Denies Hearing Impairment: Denies Cervical Anxiety Family Medical History Diabetes Physical Exam Vital Signs Vital Signs - First Documented 08/21/21 16:25 Temp 36.0 Pulse 84 Resp 20 B/P (MAP) 114/87 (96) Pulse Ox 100 O2 Delivery Room Air Capillary Refill : Height, Weight, BMI Height: '" Weight: 205lbs. 0.0oz. [id number]; BMI Method: General Appearance: WD/WN, no apparent distress HEENT: PERRL/EOMI Neck: full range of motion, supple Cardiovascular: normal peripheral pulses, regular rate, rhythm Respiratory: lungs clear, normal breath sounds Gastrointestinal: non tender Extremities: non-tender, normal inspection Psychiatric: alert, oriented x 3 Crainal Nerves: normal hearing, normal speech, PERRL Coordination/Gait: normal finger to nose, normal gait Motor/Sensory: no motor deficit, no sensory deficit, no pronator drift; No pronator drift (R), No pronator drift (L), No sensory deficit Skin: normal color, warm/dry Progress/Results/Core Measures Results/Orders My Orders Orders - EMELIA SERRANO DO Ct Head Wo (08/21/21 16:39) Metoclopramide Injection (Reglan Injecti (08/21/21 17:31) Lactated Ringers (Lr 1000 Ml Iv Solution (08/21/21 17:31) Ed Iv/Invasive Line Start (08/21/21 17:31) Ketorolac Injection (Toradol Injection) (08/21/21 17:31) Diphenhydramine Injection (Benadryl Inje (08/21/21 17:31) Vital Signs/I&O 08/21/21 16:25 Temp 36.0 Pulse 84 Resp 20 B/P (MAP) 114/87 (96) Pulse Ox 100 O2 Delivery Room Air Progress Progress Note : Progress Note Patient with no acute findings on CT. Patient likely with a migraine. Patient has frequent migraines. She will be given Toradol, Benadryl and Reglan along with a liter of IV fluids and discharged home. She should follow-up with her primary care provider as needed. Diagnostic Imaging Diagonstic Imaging: CT Plain Films/CT/US/NM/MRI: head Comments CT HEAD WO PROCEDURE: CT head without contrast. TECHNIQUE: Multiple contiguous axial images were obtained through the brain without the use of intravenous contrast. Auto Exposure Controls were utilized during the CT exam to meet ALARA standards for radiation dose reduction. DATE: August 21, 2021. COMPARISON: None. INDICATION: 46-year-old female, concussion. Headache and dizziness. FINDINGS: There is no identified skull fracture. The ventricles and cerebral spinal fluid spaces are of normal size and configuration for the patient's age. There is no mass effect or midline shift. There is no acute intracranial hemorrhage. There is no abnormal extra-axial fluid collection. The visualized portions of the paranasal sinuses, mastoid air cells and middle ears are well aerated. IMPRESSION: 1. No identified acute intracranial abnormality. Departure Impression Primary Impression: Head injury, closed Qualified Codes: S09.90XA - Unspecified injury of head, initial encounter Additional Impression: Migraine Qualified Codes: G43.909 - Migraine, unspecified, not intractable, without status migrainosus Disposition: 01 HOME, SELF-CARE Condition: Stable Departure-Patient Inst. Referrals: PEYTON TERRAZAS MD (PCP/Family) Primary Care Physician Patient Instructions: Minor Head Injury, Adult ED, Migraines (DC) Add. Discharge Instructions: Follow-up with your primary care provider if you continue to get recurrent headaches or any other concerns following your head injury All discharge instructions reviewed with patient and/or family. Voiced understanding. EMELIA SERRANO DO Aug 21, 2021 16:33
--- NOTE | 2021-08-21 17:13 | Diagnostic Imaging Report ---
PROCEDURE: CT head without contrast. TECHNIQUE: Multiple contiguous axial images were obtained through the brain without the use of intravenous contrast. Auto Exposure Controls were utilized during the CT exam to meet ALARA standards for radiation dose reduction. DATE: August 21, 2021. COMPARISON: None. INDICATION: 46-year-old female, concussion. Headache and dizziness. FINDINGS: There is no identified skull fracture. The ventricles and cerebral spinal fluid spaces are of normal size and configuration for the patient's age. There is no mass effect or midline shift. There is no acute intracranial hemorrhage. There is no abnormal extra-axial fluid collection. The visualized portions of the paranasal sinuses, mastoid air cells and middle ears are well aerated. IMPRESSION: 1. No identified acute intracranial abnormality. Dictated by: Dictated on workstation # [id number]
[2021-08-21] MEDS ORDERED: LACTATED RINGERS 1,000 ML IV STA (17:31)
[2021-08-21] MEDS ORDERED: diphenhydrAMINE 50 MG/ML INJ (BENADRYL) IV STA (17:31)
[2021-08-21] MEDS ORDERED: KETOROLAC 30 MG/ML VIAL IVP STA (17:31)
[2021-08-21] MEDS ORDERED: METOCLOPRAMIDE INJ 10 MG/2 ML (REGLAN) IVP STA (17:31)
[2021-08-21 18:10] VITALS: BP 116/72
== END 2021-08-21 18:15 | disposition home or self-care (01) ==
LOC: EDUNIT# 16:16 → ER FS 16:17
DX: S09.90XA Unspecified injury of head, initial encounter (principal); G43.909 Migraine, unspecified, not intractable, without status migrainosus; J45.909 Unspecified asthma, uncomplicated; F41.9 Anxiety disorder, unspecified; Z79.899 Other long term (current) drug therapy; W22.8XXA Striking against or struck by other objects, initial encounter
CPT/HCPCS: 70450

== ENCOUNTER → 2021-10-16 | Outpatient (CLI) | payer MEDICARE, MEDICAID ==
--- NOTE | 2021-10-16 13:38 | Diagnostic Imaging Report ---
INDICATION: Cough. TIME OF EXAM: 12:49 PM. COMPARISON: No prior studies are available for comparison. FINDINGS: The heart size is normal. The pulmonary vascularity is unremarkable. The lungs are clear. No infiltrate, effusion, or pneumothorax is detected. IMPRESSION: No acute cardiopulmonary process is detected. Dictated by: Dictated on workstation # [id number]
== END ==
LOC: RAD FS 12:37
PROVIDERS: ATTEND Family Medicine
DX: U07.1 COVID-19 (principal)
CPT/HCPCS: 36415; 71046; 86769; 87635

== ENCOUNTER → 2022-06-13 | Outpatient (CLI) | payer MEDICARE, OTHER ==
[2022-06-13 12:56] LABS: HEMATOCRIT 42 % (35-52); HEMOGLOBIN 14.4 g/dL (11.5-16.0); MEAN CORPUSCULAR HEMOGLOBIN 30 pg (25-34); MEAN CORPUSCULAR HGB CONC 34 g/dL (32-36); MEAN CORPUSCULAR VOLUME 88 fL (80-99); MEAN PLATELET VOLUME 8.2 fL (9.0-12.2); PLATELET COUNT 237 10^3/uL (130-400); WHITE BLOOD COUNT 5.1 10^3/uL (4.3-11.0)
[2022-06-13 13:19] LABS: ALBUMIN 4.3 GM/DL (3.2-4.5); BILIRUBIN,TOTAL 0.3 MG/DL (0.1-1.0); CALCIUM 9.7 MG/DL (8.5-10.1); CREATININE SERUM 0.83 MG/DL (0.60-1.30); TOTAL PROTEIN 7.3 GM/DL (6.4-8.2)
[2022-06-13 15:46] LABS: FREE T4 (FREE THYROXINE) 1.11 NG/DL (0.70-1.48)
== END ==
LOC: LAB FS 12:38
PROVIDERS: ATTEND Family Medicine
DX: J45.909 Unspecified asthma, uncomplicated (principal); M79.7 Fibromyalgia; L65.9 Nonscarring hair loss, unspecified; R58 Hemorrhage, not elsewhere classified
CPT/HCPCS: 36415; 80053; 84439; 84443; 84480; 85027

== ENCOUNTER 2023-01-20 17:18 | Emergency (ER) | payer OTHER, MEDICAID ==
[~2023-01-20] VITALS: Ht 162.6 cm; Wt 81.6 kg
--- NOTE | 2023-01-20 17:28 | ED General ---
General Stated Complaint: HEADACHE,HIGH HEART RATE,CP History of Present Illness Date Seen by Provider: January 20, 2023 Time Seen by Provider: 17:26 Initial Comments 47-year-old female presents with numerous complaints. Her symptoms have been going on for "quite a while" patient has a known history of chronic headaches and reports that she has a headache and a migraine. Patient also reports that she feels like her heart rate is fast and this has been going on for quite a while. That she is felt short of breath for quite a while with some chest pain has been going on for at least a week and a half 2 weeks if not longer. She presents today because she feels like the symptoms are little bit worse, she was texting with her neurologist and they told her to come and be evaluated. She reports they ordered an MRI but has not been set up yet. Patient reports that they are requesting a CT exam. Patient sees her neurologist at least every 3 months for Botox and is on a multiple medications for complex migraines. Patient denies any fever, chills, nausea or vomiting. Allergies and Home Medications Allergies Coded Allergies: No Known Drug Allergies (Unverified , 04/15/13) Patient Home Medication List Home Medication List Reviewed: Yes Calcium Carbonate/Vitamin D3 (Vitamin D3 5,000 Unit Tablet) 1 Each Tablet, 5,000 UNIT PO DAILY, (Reported) Entered as Reported by: RAHUL SCHROEDER on 04/15/13 1259 Cetirizine Hcl (Cetirizine Hcl) 10 Mg Tablet, 10 MG PO DAILY, (Reported) Entered as Reported by: RAHUL SCHROEDER on 04/15/13 1237 Citalopram Hydrobromide (Citalopram Hbr) 20 Mg Tablet, 20 MG PO DAILY, (Reported) Entered as Reported by: RAHUL SCHROEDER on 04/15/13 1230 Diphenhydramine Hcl (Diphenhydramine 25 Mg) 25 Mg Tablet, 25 MG PO Q4H PRN, (Reported) Entered as Reported by: RAHUL SCHROEDER on 04/15/13 1237 Docusate Sodium (Colace Capsule) 100 Mg Cap, 100 MG PO BID Prescribed by: TOMASA HUNTER on 04/21/13 1218 Flurbiprofen (Flurbiprofen) 100 Mg Tablet, 100 MG PO BID, (Reported) Entered as Reported by: RAHUL SCHROEDER on 04/15/13 123 Lorazepam (Ativan) 0.5 Mg Tablet, 0.5 MG PO Q4H PRN, (Reported) Entered as Reported by: RAHUL SCHROEDER on 04/15/13 123 Metoprolol Tartrate (Metoprolol Tartrate 25 Mg) 25 Mg Tablet, 25 MG PO BID, (Reported) Entered as Reported by: RAHUL SCHROEDER on 04/15/13 123 [place]-3 Fatty Acids/Fish Oil (Fish Oil 1,000 Mg Softgel) 1 Each Capsule, 1,000 MG PO DAILY, (Reported) Entered as Reported by: RAHUL SCHROEDER on 04/15/13 123 Ondansetron Hcl (Ondansetron Hcl) 8 Mg Tablet, 8 MG PO Q8H PRN, (Reported) Entered as Reported by: RAHUL SCHROEDER on 04/15/13 123 Oxycodone Hcl/Acetaminophen (Endocet) 1 Tab Tablet, 2 TAB PO Q6H PRN Prescribed by: TOMASA HUNTER on 04/21/13 1218 Senna (Senokot S) 1 Ea Tablet, 1 EA PO DAILY Prescribed by: TOMASA HUNTER on 04/21/13 1218 Simethicone (Mylicon Chews) 80 Mg Chew, 80 MG PO Q2HR PRN Prescribed by: TOMASA HUNTER on 04/21/13 1218 Zolpidem Tartrate (Zolpidem Tartrate) 10 Mg Tablet, 10 MG PO HS, (Reported) Entered as Reported by: RAHUL SCHROEDER on 04/15/13 1230 [B Complex Liquid] , PO DAILY, (Reported) Entered as Reported by: RAHUL SCHROEDER on 04/15/13 123 [Diatomaceous Earth] , 1 TSP PO DAILY, (Reported) Entered as Reported by: RAHUL SCHROEDER on 04/15/13 123 [Magnesium Oil] , 1-3 SPRAYS TOP DAILY, (Reported) Entered as Reported by: RAHUL SCHROEDER on 04/15/13 123 [Sambucol Cold & Flu] , UD, (Reported) Entered as Reported by: RAHUL SCHROEDER on 04/15/13 123 [Tumeric 1000MG] , 1 TAB PO DAILY PRN, (Reported) Entered as Reported by: RAHUL SCHROEDER on 04/15/13 9097 Review of Systems Review of Systems Constitutional: No chills, No fever; malaise EENTM: see HPI Respiratory: see HPI Cardiovascular: see HPI Genitourinary: no symptoms reported Musculoskeletal: no symptoms reported Skin: no symptoms reported Psychiatric/Neurological: See HPI Past Dfyulzb-Qazmww-Evwelr Hx Seasonal Allergies Seasonal Allergies: No Past Medical History Asthma Reproductive Disorders: Yes (chronic pelvic pain) Gastroesophageal Reflux, Irritable Bowel Fibromyalgia Loss of Vision: Denies Hearing Impairment: Denies Cervical Anxiety Family Medical History Diabetes Physical Exam Vital Signs Vital Signs - First Documented 01/20/23 17:27 Temp 36.2 Pulse 103 Resp 18 B/P (MAP) 138/86 (103) O2 Delivery Room Air Capillary Refill : Height, Weight, BMI Height: '" Weight: 205lbs. 0.0oz. 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 Norm as Tested Focused Exam Lactate Level 01/20/23 18:18: Lactic Acid Level 0.69 Lactic Acid Level Laboratory Tests Test 01/20/23 18:18 Lactic Acid Level 0.69 MMOL/L (0.50-2.00) Progress/Results/Core Measures Suspected Sepsis SIRS Temperature: Pulse: Respiratory Rate: Laboratory Tests 01/20/23 17:50: White Blood Count 6.6 Blood Pressure / Mean: 01/20/23 18:18: Lactic Acid Level 0.69 Laboratory Tests 01/20/23 17:50: Creatinine 0.75, Platelet Count 250, Total Bilirubin 0.3 Results/Orders Lab Results Laboratory Tests Test 01/20/23 17:50 01/20/23 18:18 01/20/23 18:25 Range/Units White Blood Count 6.6 4.3-11.0 10^3/uL Red Blood Count 5.28 H 3.80-5.11 10^6/uL Hemoglobin 15.3 11.5-16.0 g/dL Hematocrit 46 35-52 % Mean Corpuscular Volume 86 80-99 fL Mean Corpuscular Hemoglobin 29 25-34 pg Mean Corpuscular Hemoglobin Concent 34 32-36 g/dL Red Cell Distribution Width 12.7 10.0-14.5 % Platelet Count 250 130-400 10^3/uL Mean Platelet Volume 8.3 L 9.0-12.2 fL Immature Granulocyte % (Auto) 0 % Neutrophils (%) (Auto) 62 42-75 % Lymphocytes (%) (Auto) 26 12-44 % Monocytes (%) (Auto) 9 0-12 % Eosinophils (%) (Auto) 4 0-10 % Basophils (%) (Auto) 1 0-10 % Neutrophils # (Auto) 4.1 1.8-7.8 10^3/uL Lymphocytes # (Auto) 1.7 1.0-4.0 10^3/uL Monocytes # (Auto) 0.6 0.0-1.0 10^3/uL Eosinophils # (Auto) 0.2 0.0-0.3 10^3/uL Basophils # (Auto) 0.0 0.0-0.1 10^3/uL Immature Granulocyte # (Auto) 0.0 0.0-0.1 10^3/uL D-Dimer 0.43 0.00-0.49 UG/ML Sodium Level 139 135-145 MMOL/L Potassium Level 4.0 3.6-5.0 MMOL/L Chloride Level 101 98-107 MMOL/L Carbon Dioxide Level 26 21-32 MMOL/L Anion Gap 12 5-14 MMOL/L Blood Urea Nitrogen 13 7-18 MG/DL Creatinine 0.75 0.60-1.30 MG/DL Estimat Glomerular Filtration Rate 98 BUN/Creatinine Ratio 17 Glucose Level 105 70-105 MG/DL Calcium Level 10.2 H 8.5-10.1 MG/DL Corrected Calcium 10.0 8.5-10.1 MG/DL Magnesium Level 2.2 1.6-2.4 MG/DL Total Bilirubin 0.3 0.1-1.0 MG/DL Aspartate Amino Transf (AST/SGOT) 28 5-34 U/L Alanine Aminotransferase (ALT/SGPT) 26 0-55 U/L Alkaline Phosphatase 137 H 40-136 U/L Troponin I < 0.30 <0.30 NG/ML C-Reactive Protein < 0.30 <0.50 MG/DL Pro-B-Type Natriuretic Peptide < 36.0 <125.0 PG/ML Total Protein 7.7 6.4-8.2 GM/DL Albumin 4.3 3.2-4.5 GM/DL Influenza Type A (RT-PCR) Not Detected Not Detecte Influenza Type B (RT-PCR) Not Detected Not Detecte SARS-CoV-2 RNA (RT-PCR) Not Detected Not Detecte Lactic Acid Level 0.69 0.50-2.00 MMOL/L Urine Color YELLOW Urine Clarity CLEAR Urine pH 7.5 5-9 Urine Specific [place] 1.015 L 1.016-1.022 Urine Protein NEGATIVE NEGATIVE Urine Glucose (UA) NEGATIVE NEGATIVE Urine Ketones TRACE H NEGATIVE Urine Nitrite NEGATIVE NEGATIVE Urine Bilirubin NEGATIVE NEGATIVE Urine Urobilinogen 0.2 < = 1.0 MG/DL Urine Leukocyte Esterase NEGATIVE NEGATIVE Urine RBC (Auto) NEGATIVE NEGATIVE Urine RBC NONE /HPF Urine WBC 2-5 /HPF Urine Squamous Epithelial Cells 2-5 /HPF Urine Crystals NONE /LPF Urine Bacteria NEGATIVE /HPF Urine Casts NONE /LPF Urine Mucus MODERATE H /LPF Urine Culture Indicated NO Urine Opiates Screen NEGATIVE NEGATIVE Urine Oxycodone Screen NEGATIVE NEGATIVE Urine Methadone Screen NEGATIVE NEGATIVE Urine Propoxyphene Screen NEGATIVE NEGATIVE Urine Barbiturates Screen NEGATIVE NEGATIVE Ur Tricyclic Antidepressants Screen POSITIVE H NEGATIVE Urine Phencyclidine Screen NEGATIVE NEGATIVE Urine Amphetamines Screen NEGATIVE NEGATIVE Urine Methamphetamines Screen NEGATIVE NEGATIVE Urine Benzodiazepines Screen POSITIVE H NEGATIVE Urine Cocaine Screen NEGATIVE NEGATIVE Urine Cannabinoids Screen NEGATIVE NEGATIVE My Orders Orders - SERRANO,EMELIA L DO Cbc With Automated Diff (01/20/23 17:33) Comprehensive Metabolic Panel (01/20/23 17:33) Fibrin Degradation Products (01/20/23 17:33) Drug Screen Stat (Urine) (01/20/23 17:33) Lactic Acid Analyzer (01/20/23 17:33) Magnesium (01/20/23 17:33) Ua Culture If Indicated (01/20/23 17:33) Influenza A And B By Pcr (01/20/23 17:33) Probnp Fs (01/20/23 17:33) Crp Fs (01/20/23 17:33) Troponin I Fs (01/20/23 17:33) Covid 19 Inhouse Test (01/20/23 17:33) Ct Head Wo (01/20/23 17:33) Ketorolac Injection (Toradol Injection) (01/20/23 17:33) Metoclopramide Injection (Reglan Injecti (01/20/23 17:33) Ns Iv 1000 Ml (Sodium Chloride 0.9%) (01/20/23 17:33) Diphenhydramine Injection (Benadryl Inje (01/20/23 17:33) Ekg Tracing (01/20/23 17:33) Monitor-Rhythm Ecg Trace Only (01/20/23 17:33) Ed Iv/Invasive Line Start (01/20/23 18:03) Chest Pa/Lat (2 View) (01/20/23 18:54) Vital Signs/I&O 01/20/23 17:27 Temp 36.2 Pulse 103 Resp 18 B/P (MAP) 138/86 (103) O2 Delivery Room Air Capillary Refill : Progress Note : Progress Note Patient's diagnostic studies were ordered reviewed and interpreted by me. Patient's labs show no acute findings or significant abnormalities. Patient's CT head was ordered reviewed with final interpretation per radiology report that shows no acute changes. Patient's checks x-ray was ordered reviewed with no significant findings. Patient has significant "chronic medical problems" I discussed with her that she will need to continue to follow-up with her primary care provider and her specialist that she has been evaluated for a multitude of things including fibromyalgia, chronic migraines, etc. That at this time there is no indications for further work-up in the emergency room as there is no significant concerning findings. She should continue to take her home medications that include both propanolol, Xanax and along with her other medications. Patient's has increased risk of morbidity and mortality based on her social determinants of health. She is stable and discharged home with ECG Initial ECG Impression Date: January 20, 2023 Initial ECG Impression Time: 17:41 Initial ECG Rate: 102 Initial ECG Rhythm: S.Tach Initial ECG Intervals low voltage qrs Initial ECG Impression: Nonspecific Changes Comment no acute st elevation or changes Diagnostic Imaging Diagonstic Imaging: CT Plain Films/CT/US/NM/MRI: head Comments Date of Exam:01/20/23 CT HEAD WO PROCEDURE: CT head without contrast. TECHNIQUE: Multiple contiguous axial images were obtained through the brain without the use of intravenous contrast. Auto Exposure Controls were utilized during the CT exam to meet ALARA standards for radiation dose reduction. INDICATION: Headache, pain. COMPARISON: 08/21/2021. 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 No intracranial hemorrhage. No intracranial mass, mass effect, midline shift, herniation, hydrocephalus, or extra-axial fluid collection. No CT evidence of an acute ischemic infarction. The orbits are unremarkable. Tiny mucus retention cyst within the sphenoid sinus. The paranasal sinuses are otherwise clear. The calvarium and extracalvarial soft tissues are unremarkable. IMPRESSION: No acute intracranial abnormality. Stable 1 cm pineal gland cyst. Additional findings as above. Reviewed: Reviewed by Me, Reviewed/Discussed Departure Impression Primary Impression: Migraine Qualified Codes: G43.709 - Chronic migraine without aura, not intractable, without status migrainosus Additional Impression: Chronic malaise Disposition: 01 HOME, SELF-CARE Condition: Stable Departure-Patient Inst. Referrals: PEYTON TERRAZAS MD (PCP/Family) Primary Care Physician Patient Instructions: Fatigue ED, Migraines in Adults Add. Discharge Instructions: Please follow-up with Dr. Terrazas along with your neurologist and other specialist for continued evaluation. You are okay to continue all your medications as prescribed. EMELIA SERRANO DO January 20, 2023 17:28
[2023-01-20] MEDS ORDERED: METOCLOPRAMIDE INJ 10 MG/2 ML (REGLAN) IVP STA (17:33)
[2023-01-20] MEDS ORDERED: NS IV 1000 ML 1,000 ML IV STA (17:33)
[2023-01-20] MEDS ORDERED: diphenhydrAMINE 50 MG/ML INJ (BENADRYL) IV STA (17:33)
[2023-01-20] MEDS ORDERED: KETOROLAC 30 MG/ML VIAL IVP STA (17:33)
[2023-01-20 18:00] LABS: BASOPHILS % (AUTO) 1 % (0-10); EOSINOPHILS # (AUTO) 0.2 10^3/uL (0.0-0.3); EOSINOPHILS % (AUTO) 4 % (0-10); HEMATOCRIT 46 % (35-52); HEMOGLOBIN 15.3 g/dL (11.5-16.0); LYMPHOCYTES # (AUTO) 1.7 10^3/uL (1.0-4.0); LYMPHOCYTES % (AUTO) 26 % (12-44); MEAN CORPUSCULAR HEMOGLOBIN 29 pg (25-34); MEAN CORPUSCULAR HGB CONC 34 g/dL (32-36); MEAN CORPUSCULAR VOLUME 86 fL (80-99); MEAN PLATELET VOLUME 8.3 fL (9.0-12.2); MONOCYTES # (AUTO) 0.6 10^3/uL (0.0-1.0); MONOCYTES % (AUTO) 9 % (0-12); NEUTROPHILS # (AUTO) 4.1 10^3/uL (1.8-7.8); NEUTROPHILS % (AUTO) 62 % (42-75); PLATELET COUNT 250 10^3/uL (130-400); WHITE BLOOD COUNT 6.6 10^3/uL (4.3-11.0)
--- NOTE | 2023-01-20 18:15 | Diagnostic Imaging Report ---
PROCEDURE: CT head without contrast. TECHNIQUE: Multiple contiguous axial images were obtained through the brain without the use of intravenous contrast. Auto Exposure Controls were utilized during the CT exam to meet ALARA standards for radiation dose reduction. INDICATION: Headache, pain. COMPARISON: 08/21/2021. 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 No intracranial hemorrhage. No intracranial mass, mass effect, midline shift, herniation, hydrocephalus, or extra-axial fluid collection. No CT evidence of an acute ischemic infarction. The orbits are unremarkable. Tiny mucus retention cyst within the sphenoid sinus. The paranasal sinuses are otherwise clear. The calvarium and extracalvarial soft tissues are unremarkable. IMPRESSION: No acute intracranial abnormality. Stable 1 cm pineal gland cyst. Additional findings as above. Dictated by: Dictated on workstation # [id number]
[2023-01-20 18:31] LABS: BILIRUBIN,URINE NEGATIVE (NEGATIVE); CLARITY,URINE CLEAR; COLOR,URINE YELLOW; GLUCOSE, URINE (UA) NEGATIVE (NEGATIVE); KETONES,URINE TRACE (NEGATIVE); LEUKOCYTE ESTERASE ,URINE NEGATIVE (NEGATIVE); NITRITE,URINE NEGATIVE (NEGATIVE); PH,URINE 7.5 (5-9); PROTEIN,URINE NEGATIVE (NEGATIVE)
[2023-01-20 18:32] LABS: SODIUM 139 MMOL/L (135-145)
[2023-01-20 18:33] LABS: ALANINE AMINOTRANSFERASE 26 U/L (0-55); ALKALINE PHOSPHATASE 137 U/L (40-136); BILIRUBIN,TOTAL 0.3 MG/DL (0.1-1.0); BUN/CREATININE RATIO 17; CALCIUM 10.2 MG/DL (8.5-10.1); CARBON DIOXIDE 26 MMOL/L (21-32); CHLORIDE 101 MMOL/L (98-107); CREATININE SERUM 0.75 MG/DL (0.60-1.30); GFR ESTIMATED 98; GLUCOSE 105 MG/DL (70-105); MAGNESIUM 2.2 MG/DL (1.6-2.4)
[2023-01-20 18:34] LABS: ALBUMIN 4.3 GM/DL (3.2-4.5); TOTAL PROTEIN 7.7 GM/DL (6.4-8.2)
[2023-01-20 18:42] LABS: BACTERIA,URINE NEGATIVE /HPF
[2023-01-20 18:43] LABS: AMPHETAMINE SCREEN, URINE NEGATIVE (NEGATIVE); BARBITURATE SCREEN URINE NEGATIVE (NEGATIVE); BENZODIAZEPINES SCREEN URINE POSITIVE (NEGATIVE); CANNABINOID SCREEN, URINE NEGATIVE (NEGATIVE); COCAINE SCREEN URINE NEGATIVE (NEGATIVE); METHADONE STAT NEGATIVE (NEGATIVE); OPIATE SCREEN URINE NEGATIVE (NEGATIVE); OXYCODONE STAT NEGATIVE (NEGATIVE); PROPOXYPHENE STAT NEGATIVE (NEGATIVE); TRICYCLIC ANTIDEPRESSANTS SCRE POSITIVE (NEGATIVE)
--- NOTE | 2023-01-20 19:27 | Diagnostic Imaging Report ---
INDICATION: Shortness of breath COMPARISON: 10/16/2021. TECHNIQUE: Two radiographs of the chest dated 01/20/2023. FINDINGS: Bilateral breast implants are noted overlying the lower chest. The cardiac silhouette is within normal limits in size. No significant pulmonary vascular congestion. The lungs are clear without focal pulmonary opacity. No pleural effusion. No pneumothorax. No acute osseous abnormality. IMPRESSION: Stable appearing examination without acute cardiopulmonary abnormality. Dictated by: Dictated on workstation # [id number]
[2023-01-20 19:41] VITALS: BP 127/79
== END 2023-01-20 19:41 | disposition home or self-care (01) ==
LOC: EDUNIT# 17:18 → ER FS 17:20
DX: G43.909 Migraine, unspecified, not intractable, without status migrainosus (principal); M79.7 Fibromyalgia; Z79.899 Other long term (current) drug therapy; Z28.310 Unvaccinated for COVID-19; Z20.822 Contact with and (suspected) exposure to COVID-19
CPT/HCPCS: 36415; 70450; 71046; 80053; 80306; 81000; 83605; 83735; 83880; 84484; 85025; 85379; 86141; 87636; 93005; 93041